=== PATIENT | female | born 1940 | race Caucasian/White ===

== ENCOUNTER → 2016-09-19 | Outpatient (CLI) | payer OTHER, MEDICARE ==
[2016-09-19 08:42] LABS: BILIRUBIN,TOTAL 1.1 mg/dL (0.3-1.2); BUN/CREATININE RATIO 15.55 (6-20); CALCIUM 9.4 mg/dL (8.7-10.7); CREATININE 0.9 mg/dL (0.50-1.20); LDL CHOLESTEROL,CALCULATED 77.6 mg/dL; POTASSIUM 4.5 meq/L (3.8-5.2); TOTAL PROTEIN 6.8 g/dL (6.1-8.0)
[2016-09-19 08:45] LABS: HEMOGLOBIN A1C 7.13 % (4.2-6.0); MEAN BLOOD GLUCOSE (CALC) 151.429 mg/dL
[2016-09-19 11:30] LABS: CREATININE, URINE 56.7 MG/DL (15-500)
== END ==
LOC: LAB 08:15
PROVIDERS: ATTEND Internal Medicine
DX: E11.9 Type 2 diabetes mellitus without complications (principal); Z79.4 Long term (current) use of insulin; E78.5 Hyperlipidemia, unspecified; I10 Essential (primary) hypertension
CPT/HCPCS: 36415; 80053; 80061; 82043; 82550; 83036

== ENCOUNTER → 2016-09-20 | Outpatient (CLI) | payer OTHER, MEDICARE | LOC: MMPC 11:11 | PROVIDERS: ATTEND Internal Medicine | DX: E11.9 Type 2 diabetes mellitus without complications (principal); I10 Essential (primary) hypertension; E78.5 Hyperlipidemia, unspecified | CPT/HCPCS: 99213; G0463 ==

== ENCOUNTER → 2017-01-01 | Outpatient (CLI) | payer OTHER, MEDICARE ==
[2017-01-01 08:33] LABS: BUN/CREATININE RATIO 17.77 (6-20); CALCIUM 9.1 mg/dL (8.7-10.7)
== END ==
LOC: LAB 08:03
PROVIDERS: ATTEND Internal Medicine
DX: M81.0 Age-related osteoporosis without current pathological fracture (principal)
CPT/HCPCS: 36415; 80048

== ENCOUNTER → 2017-01-12 | Outpatient (CLI) | payer OTHER, MEDICARE | LOC: MMPC 11:11 | PROVIDERS: ATTEND Internal Medicine | DX: M81.0 Age-related osteoporosis without current pathological fracture (principal) | CPT/HCPCS: G0463; J0897 ==